=== PATIENT | male | born 2005 | race African-American/Black ===

== ENCOUNTER 2025-09-19 12:49 | Observation (INO) ==
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
[2025-09-19 15:09] LABS: Alanine Aminotransferase 30.0 U/L (7-52); Albumin Globulin Ratio 1.1 (0.9-2); Albumin Level 4.2 gm/dl (3.4-5.0); Alkaline Phosphatase 83.0 U/L (34-104); Anion Gap 7.0 (3-11); Bilirubin,Total 1.2 mg/dl (0.2-1.0); Blood Urea Nitrogen 12.0 mg/dl (6-23); Calcium 9.9 mg/dl (8.6-10.3); Carbon Dioxide 28.0 mmol/L (21-32); Chloride 104.0 mmol/L (98-107); Creatinine Clr Calc Pharmacy 142.6 ml/min; Globulin 3.7 gm/dl (2.5-4.0); Glucose 83.0 mg/dl (70-99(Fasting)); Magnesium 1.8 mg/dl (1.7-2.4); Potassium 4.1 mmol/L (3.5-5.1); Sodium 139.0 mmol/L (136-145); Total Protein 7.9 gm/dl (6.0-8.3)
[2025-09-19] MEDS: ONDANSETRON 4 MG OD TAB PO STA (15:53)
--- NOTE | 2025-09-19 15:58 | XRay Report ---
EXAM: Radiograph of the Chest 1 View INDICATION: Chest pain TECHNIQUE: Frontal view of the chest. COMPARISON: 09/08/2025 FINDINGS: Lungs and pleural spaces: No consolidation or pulmonary edema. No pleural effusion or pneumothorax. Heart: Shape and configuration within normal limits allowing for technique. Mediastinum: Normal contour. Bones/joints: No fracture, erosion or dislocation. Soft tissues: No abnormality noted. No radiopaque foreign body noted. Upper abdomen: No abnormality noted. IMPRESSION: No abnormality noted. ACT 112: N/A Electronically signed by Rocio Wilson 09-19-2025 3:58 PM
--- NOTE | 2025-09-19 18:16 | CT Scan Report ---
CT cervical spine without IV contrast History: Trauma Comparison: None Technique: Using multidetector thin collimation helical acquisition technique, axial, coronal and sagittal CT images through the cervical spine were obtained without intravenous contrast. Dose reduction techniques were achieved by using automatic exposure control and/or adjustment of mA and/or kV according to patient size and/or use of iterative reconstruction technique. Findings: The cervical vertebrae are normally aligned. Straightened cervical lordosis. No acute fracture or subluxation. No prevertebral edema. There is no disc height narrowing at any level. The findings on a level by level basis are as follows: C2-3: No spinal canal or neural foraminal stenosis C3-4: No spinal canal or neural foraminal stenosis C4-5: No spinal canal or neural foraminal stenosis C5-6: No spinal canal or neural foraminal stenosis C6-7: No spinal canal or neural foraminal stenosis C7-1: No spinal canal or neural foraminal stenosis No abnormality of the paraspinous soft tissues. Impression: No acute fracture or traumatic subluxation. Electronically signed by Nilton Segura 09-19-2025 6:16 PM
[2025-09-19 18:59] LABS: Hematocrit (blood only) 42.8 % (42.0-52.0); Hemoglobin 14.8 g/dl (14.0-18.0); Immature Granulocytes # (auto) 0.02 K/uL (0.01-0.20); Immature Granulocytes % (auto) 0.2 %; Mean Corpuscular Hemoglobin 27.0 pg (25.0-34.0); Mean Corpuscular Volume 78.0 fL (80.0-100.0); Platelet Count 154 K/uL (130-400); RDW Standard Deviation 36.3 fL (36.4-46.3); Red Blood Count 5.49 M/uL (4.70-6.10); White Blood Count 9.27 K/ul (4.8-10.8)
[2025-09-19] MEDS: OPTIRAY 320 125ml IV ONE (19:14)
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
--- NOTE | 2025-09-19 19:29 | CT Scan Report ---
INDICATION: Chest pain COMPARISON: None TECHNIQUE: CT images of the chest were obtained. 3D CT angiogram was generated from the axial data set. Dose reduction according to patient size and/or automated exposure control techniques have been utilized for this exam. MIP (Maximum Intensity Pixel) images were utilized. FINDINGS: AXIAL IMAGES: LUNGS: No focal consolidations. No worrisome pulmonary nodules. PLEURA: There is no pleural effusion. MEDIASTINUM/LA: No significant lymphadenopathy. CARDIAC: The heart is normal in size. AORTA: No aneurysm. LIMITED ABDOMEN: Normal size adrenal glands. BONES: Bony thorax is intact. OTHER: Unremarkable. CTA: No large or central pulmonary emboli.There is some motion artifact at the lung bases. Distal lower lobe pulmonary arterial branches are not well-evaluated, especially in the left lower lobe region. IMPRESSION: No large or central pulmonary emboli. No focal consolidations. Electronically signed by Carlotta Liz 09-19-2025 7:29 PM
[2025-09-19 20:41] LABS: INR 1.0 (0.9-1.1); Partial Thromboplastin Time 25 Seconds (21-31); Prothrombin Time 10.9 Seconds (9.0-12.0)
[2025-09-19] MEDS: ACETAMINOPHEN 1,000 MG/100 ML VIAL IV STA (21:19)
[2025-09-19] MEDS: SODIUM CHLORIDE 0.9% 1,000 ML IV ONE (21:28)
[2025-09-19] MEDS: SODIUM CHLORIDE 0.9% 1,000 ML IV SCH (22:37)
[2025-09-19 22:56] LABS: Chlamydia pneumoniae PCR Not Detected (NotDetected); Coronavirus 229E PCR Not Detected (NotDetected); Coronavirus CoV-2 (COVID19)PCR Not Detected (NotDetected); Coronavirus HKU1 PCR Not Detected (NotDetected); Coronavirus NL63 PCR Not Detected (NotDetected); Coronavirus OC43PCR Not Detected (NotDetected); Human Metapneumovirus PCR Not Detected (NotDetected); Parainfluenza Virus 1 PCR Not Detected (NotDetected); Parainfluenza Virus 2 PCR Not Detected (NotDetected); Parainfluenza Virus 3 PCR Not Detected (NotDetected); Parainfluenza Virus 4 PCR Not Detected (NotDetected); Respiratory Syncytial VirusPCR Not Detected (NotDetected); Rhinovirus/Enterovirus PCR Not Detected (NotDetected)
[2025-09-19] MEDS: PIPERACILLIN/TAZOBACTAM 4.5 GM/100 ML BAG IV ONE (23:00)
[2025-09-19 23:14] LABS: Appearance Urine Clear (Clear); Glucose Urine UA Negative (Negative)
[2025-09-19] MEDS: DOXYCYCLINE HYCLATE 100 MG in DEXTROSE 5% MINI-B 100 ML IV SCH (23:43)
[2025-09-20] MEDS: ONDANSETRON INJ 2 MG/ML 2 ML VIAL IV PRN (02:07)
[2025-09-20] MEDS: PIPERACILLIN/TAZOBACTAM 4.5 GM/100 ML BAG IV SCH (04:06)
[2025-09-20] MEDS: ACETAMINOPHEN 325 MG TAB PO PRN (04:13)
[2025-09-20] MEDS: SODIUM CHLORIDE 0.65% NA SOLN 45 ML (OCEAN) PRN (05:02)
[2025-09-20] MEDS: KETOROLAC TROMETHAMINE 15 MG/ML VIAL IV ONE (05:02)
[2025-09-20] MEDS: SODIUM CHLORIDE 0.65% NA SOLN 45 ML (OCEAN) ONE (06:35)
--- NOTE | 2025-09-20 07:41 | Hospitalist Progress Note ---
Date of Service September 20, 2025 Assessment & Plan (1) Chest pain: (2) Syncope: Plan Mr Conrad is a20 y/o male who is detained at [facility] with no clear medical history admitted for evaluation of chest pain and abnormal ekg. Given fever and pleuritic nature of pain as well as elevated troponin and ST elevations, will treat as a myopericarditis until further recommendations from cardiology. #Elevated troponin suspect 2/2 myopericarditis #Atypical chest pain #Fever - CT chest PE protocol negative for PE EKG personally reviewed with ST changes TMAX 39.4, biofire negative TSH wnl blood cultures pending Continue empiric coverage for now ESR wnl, CRP mildly elevated ECHO ordered Scheduled Ibuprofen 600mg TID Start PPI Colchicine 1.2 mg now followed by 0.6mg bid continue to monitor on tele Cardiology following, appreciate further recommendations #Concentric LVH Cardiology recommends OP cardiac MRI to assess for LVOH #Microcytic anemia #MADELIN ferritin 70.1, Iron 18 adminster IV venofer DVT ppx enoxaparin Admission and Anticipated Discharge Date Admission Date: September 19, 2025 Subjective Reports feeling somewhat improved after IV ketorolac this am States pain is settled. Not very engaged in conversation Physical Exam Constitutional: WD/WN, vitals as above Respiratory: normal respiratory effort, lungs clear to auscultation Cardiovascular: RRR, no murmur, no edema Gastrointestinal (Abdomen): normal bowel sounds, soft, nontender, no hepatosplenomegaly Results & Data Results & Data Vital Signs (Past 12 Hours) Vital Signs Temp Pulse Pulse Resp BP Pulse Ox O2 Del Method 09/20/25 04:00 38.0 C H 96 H 19 104/52 L 95 Room Air 09/20/25 01:53 100 H 09/20/25 00:27 38.3 C H 100 H 18 106/65 95 Room Air 09/19/25 20:45 39.4 C H 108 H 20 97/47 L 95 Room Air Laboratory Results Short CBC 09/19/25 09/19/25 Range/Units 14:38 18:36 WBC Cancelled 9.27 Hgb Cancelled 14.8 Hct Cancelled 42.8 Plt Count Cancelled 154 BMP 09/19/25 14:38 Sodium 139 Potassium 4.1 Chloride 104 Carbon Dioxide 28 BUN 12 Creatinine 1.07 Glucose 83 Calcium 9.9 Liver Function 09/19/25 Range/Units 14:38 Total Bilirubin 1.2 H (0.2-1.0) mg/dl AST 28 (13-39) U/L ALT 30 (7-52) U/L Alkaline Phosphatase 83 (34-104) U/L Albumin 4.2 (3.4-5.0) gm/dl Urine 09/19/25 Range/Units Unknown Urine Color Yellow Urine Appearance Clear (Clear) Urine pH 5.5 (4.5-7.5) Ur Specific [place] 1.044 H (1.000-1.030) Urine Protein Negative (Negative) Urine Glucose (UA) Negative (Negative) Medications Administered Home Medications Medication Instructions Recorded Confirmed Last Taken No Known Home Medications 09/07/25 09/19/25 Unknown Active Medications Generic Name Dose Route Start Last Admin Trade Name Freq PRN Reason Stop Dose Admin Acetaminophen 650 mg 09/19/25 20:50 09/20/25 04:13 Acetaminophen 325 Mg Tab PO 10/19/25 20:49 650 mg Q4H PRN Administration Pain or Fever Sodium Chloride 1,000 mls @ 80 mls/hr 09/19/25 21:15 09/19/25 22:37 Nss IV 09/22/25 21:14 80 mls/hr .[id number] HECTOR Administration Piperacillin Sod/Tazobactam Sod 4.5 gm in 100 mls @ 25 mls/hr 09/20/25 04:00 09/20/25 04:06 Zosyn IV 09/22/25 03:59 25 mls/hr Q8H HECTOR Administration Protocol Doxycycline Hyclate 100 mg/ 100 mls @ 50 mls/hr 09/19/25 21:15 09/20/25 02:59 Dextrose IV 09/21/25 21:14 Infused Q12H HECTOR Infusion Ondansetron HCl 4 mg 09/19/25 20:50 09/20/25 02:07 Ondansetron Inj 2 Mg/Ml 2 Ml Vial IV 10/19/25 20:49 4 mg Q6H PRN Administration Nausea Sodium Chloride 1 sprays 09/20/25 04:18 09/20/25 05:02 Sodium Chloride 0.65% Na Soln 45 Ml ([place]) NA 10/20/25 04:29 1 sprays Q6H PRN Administration Nasal Congestion
[2025-09-20 08:13] LABS: Hematocrit (blood only) 38.9 % (42.0-52.0); Hemoglobin 12.6 g/dl (14.0-18.0); Immature Granulocytes # (auto) 0.05 K/uL (0.01-0.20); Immature Granulocytes % (auto) 0.6 %; Mean Corpuscular Hemoglobin 25.8 pg (25.0-34.0); Mean Corpuscular Volume 79.7 fL (80.0-100.0); Platelet Count 103 K/uL (130-400); RDW Standard Deviation 37.7 fL (36.4-46.3); Red Blood Count 4.88 M/uL (4.70-6.10); White Blood Count 8.92 K/ul (4.8-10.8)
[2025-09-20 08:34] LABS: Alanine Aminotransferase 26.0 U/L (7-52); Albumin Level 3.5 gm/dl (3.4-5.0); Alkaline Phosphatase 67.0 U/L (34-104); Anion Gap 8.0 (3-11); Bilirubin,Total 1.1 mg/dl (0.2-1.0); Blood Urea Nitrogen 14.0 mg/dl (6-23); Calcium 8.7 mg/dl (8.6-10.3); Carbon Dioxide 25.0 mmol/L (21-32); Chloride 106.0 mmol/L (98-107); Cholesterol 109.0 mg/dl (0-200); Creatinine Clr Calc Pharmacy 136.1 ml/min; Glucose 90.0 mg/dl (70-99(Fasting)); HDL Cholesterol 36.0 mg/dl; Potassium 3.6 mmol/L (3.5-5.1); Sodium 139.0 mmol/L (136-145); Total Protein 6.7 gm/dl (6.0-8.3); Triglycerides 51.0 mg/dl (0-150)
[2025-09-20 08:45] LABS: Thyroid Stimulating Hormone 0.399 uIu/ml (0.300-4.500)
[2025-09-20] MEDS ORDERED: SODIUM CHLORIDE 0.65% NA SOLN 45 ML (OCEAN) SCH (09:00)
[2025-09-20] MEDS: COLCHICINE 0.6 MG TAB PO ONE (09:02)
[2025-09-20] MEDS: ENOXAPARIN INJ 40 MG/0.4 ML SYR SQ SCH (09:03)
[2025-09-20] MEDS ORDERED: IBUPROFEN 600 MG TAB PO SCH (10:00)
[2025-09-20 10:21] LABS: Creatine Kinase 538.0 U/L (30-223)
[2025-09-20 11:05] LABS: Iron 18.0 mcg/dl (35-175); Total Iron Binding Cap Calc 330.0 mcg/dl (250-450); Transferrin 236.0 mg/dl (200-360); Transferrin (FE) Percent Satur 5.0 % (20-50)
[2025-09-20 11:24] LABS: Ferritin 70.1 ng/ml (8-388)
--- NOTE | 2025-09-20 11:49 | XCELERA ---
[id number]
--- NOTE | 2025-09-20 13:38 | Electrocardiogram Report ---
Test Reason : Blood Pressure : */* mmHG Vent. Rate : 92 BPM Atrial Rate : 92 BPM P-R Int : 164 ms QRS Dur : 92 ms QT Int : 350 ms P-R-T Axes : 59 65 -14 degrees QTcB Int : 432 ms Normal sinus rhythm T wave abnormality, consider inferolateral ischemia vs LVH Abnormal ECG When compared with ECG of 08-Sep-2025 15:32, No significant change was found Confirmed by Nilton Barahona ([id number]) on 09/20/2025 1:38:41 PM Referred By: [facility] Confirmed By: Nilton Barahona
--- NOTE | 2025-09-20 13:39 | Electrocardiogram Report ---
Test Reason : Blood Pressure : */* mmHG Vent. Rate : 94 BPM Atrial Rate : 94 BPM P-R Int : 128 ms QRS Dur : 100 ms QT Int : 366 ms P-R-T Axes : 56 69 -43 degrees QTcB Int : 457 ms Normal sinus rhythm Left ventricular hypertrophy with repolarization abnormality Abnormal ECG When compared with ECG of 19-Sep-2025 12:58, (unconfirmed) ST more elevated in Anterior leads Confirmed by Nilton Barahona ([id number]) on 09/20/2025 1:39:43 PM Referred By: [facility] Confirmed By: Nilton Barahona
--- NOTE | 2025-09-20 13:41 | Cardiology Consultation ---
Date of Consultation September 20, 2025 Assessment & Plan (1) EKG abnormalities: (2) Elevated troponin: (3) Chest pain: Plan Patient is a 20 year old incarcerated male without any known medical problems admitted to [facility] with chest pain, SOB, and questionable syncope. Febrile ove rnight. He has been found to have abnormal EKG over the last [address]/T wave abnormalities, possible LVH with repolarization abnormalities. Minimally elevated troponin. Not suggestive of angina or ACS Elevated CK and CRP. Lyme negative Normal LVEF with moderate LVH (no history of HTN). Family history of SCD with brother age 25. Details uncertain. Await blood cultures, tox screen. Continue broad spectrum antibiotics for now. HR and BP controlled Consider colchicine for possible pericarditis. Given moderate LVH, findings consistent with possible HCM? Recommend cardiac MRI and cardiac CT as outpatient Continue on telemetry Outpatient ZIO monitor recommended. Further recommendations pending evaluation with Dr. Lane Case discussed with Dr. Lane I spent a total of 60 minutes on the date of service in preparation, delivery, and documentation of the care provided to this patient, excluding any time spent in the performance of separately billed services. Misty Jaimes PA-C Department of Cardiology, [facility] This chart was completed in part utilizing Speech Voice Recognition Software. Grammatical errors, random word insertions, pronoun errors, and incomplete sentences are an occasional consequence of this system due to software limitations, ambient noise, and hardware issues. Any formal questions or concerns about the content, text, or information contained within the body of this dictation should be directly addressed to the provider for clarification. Supervising Physician Co-Signing Physician Notes I have personally performed a history and physical examination on the patient. I have reviewed the advance practitioner's documentation, and I agree with, and take responsibility for the plan of care. 20-year-old male presenting to the emergency department with sharp, intermittent chest discomfort atypical for angina. Initially reported syncopal episode, moe bruce, I discussed the case with medical staff at patient's facility who denied any loss of consciousness. Reports patient was combative and hyperventilating when he dropped to the ground however, did not lose consciousness. Possible family history of sudden cardiac involving his 25-year-old brother, however, details are unknown at this time. High-sensitivity troponin minimally elevated and flat in setting of elevated CK. Febrile overnight suggesting inflammatory, possible infectious process although no obvious source of infection present on evaluation. Cultures pending at this time. Echocardiogram reveals moderate concentric left ventricular hypertrophy without pericardial effusion. Symptoms improved with addition of NSAIDs/colchicine suggesting possible pericarditis/myopericarditis. Continue empiric antibiotic therapy, pending review of blood cultures. Continue NSAIDs at this time for symptomatic relief. Restart colchicine tomorrow pending review of CBC and platelet count. Further evaluation with 14-day ZIO monitor, cardiac MRI, and cardiac CT as outpatient. I spent a total of 45 minutes on the date of service in preparation, delivery, and documentation of the care provided to this patient, excluding any time spent in the performance of separately billed services. Gonsalo Lane DO, [facility] History of Present Illness Reason for Consultation: Abnormal EKG; Syncope Requesting Physician: Roc Dejesus Attending Physician: Dr. Lane History of Present Illness Patient is a 20 year old male who presented to [facility] yesterday after a syncopal event at his long-term facility. Syncope occurred while he was agitated and being evaluated at the [facility] medical wing. Recent history includes chest pain and dyspnea over the last few months. Described as sharp stabbing chest pain over his heart. Occurs with deep inspiration or activity. Also noted progressive SOB with activities. He was evaluated in the ER approx 2 weeks ago for similar symptoms. In the ER, he was found to have abnormal EKG demonstrating NSR with diffuse ST/T wave abnormality in anterolateral leads. Minimally elevated troponin noted in the 30's. Elevated CK and CRP also noted. IT was recommended he stay and be admitted and echo was ordered but patient refused care and wanted to leave AMA. Over the last 2 weeks he reports worsening sharp chest pain and dyspnea. He went to the [facility] yesterday due to symptoms and it was there he had a witnessed syncopal event. Apparently he was unconscious for 1-2 minutes. Patient does not recall events. He was then transferred for evaluation to [facility]. Once again on arrival, he was found to have abnormal EKG with diffuse ST/T wave abnormalities in anterolateral and inferior leads. Mild ST elevation noted. Minimally elevated troponin again noted in the 20's. Elevated CK and CRP again noted. Concers for pericarditis vs myocarditis on admisison. Treated with dose of colchicine and ibuprofen. Overnight he was febrile for several hours. Blood cultures pending. Antibiotics added. Respiratory panel was negative. Lyme negative. Tox screen pending Patient was agreeable to echo which demonstrated normal LVEF with moderate LVH and no significant valvular disease. At time of consult, patient resting in bed comfortably. Reports his "sharp" pain has improved. No additional fevers. SOB is better at rest. No orthopnea, PND or edema. Allergies Allergy/AdvReac Type Severity Reaction Status Date / Time No Known Allergies Allergy Verified 09/07/25 22:56 Home Medications Medication Instructions Recorded Confirmed Type No Known Home Medications 09/07/25 09/19/25 History Patient History Social History Smoking Status: Never smoker Hx Alcohol Use: No Hx Substance Use: No Preferred Language: Amharic Communication Ability: Effective Soil Chemist Required: No Beliefs That Will Affect Care: Cultural Cultural Beliefs: "Israelite"- refuses treatment with modern medicine Current Living Situation: Other Current Living Situation Comment: [facility] Feels Safe at Home: No Review of Systems Review of Systems: All systems reviewed & are unremarkable except as noted in HPI & below Physical Exam Constitutional: WD/WN, vitals as above no acute distress Neck: trachea midline, no thyromegaly Respiratory: normal respiratory effort, lungs clear to auscultation Cardiovascular: Rate/Rhythm: regular rate and regular rhythm Heart Sounds: normal S1 and normal S2; no murmur Vessels: no JVD Extremities: no edema Gastrointestinal (Abdomen): normal bowel sounds, soft, nontender, no hepatosplenomegaly Neurologic: PERRL, EOMI, accommodation nl, no face palsy, no dysarthria Results & Data Vital Signs (Past 12 Hours) Vital Signs Temp Pulse Pulse Resp BP Pulse Ox O2 Del Method 09/20/25 11:41 36.3 C L 68 18 120/76 98 Room Air 09/20/25 07:42 36.6 C 78 18 115/69 98 Room Air 09/20/25 04:00 38.0 C H 96 H 19 104/52 L 95 Room Air 09/20/25 01:53 100 H Laboratory Results Cardiac Enzymes 09/19/25 09/19/25 09/19/25 Range/Units 14:38 16:50 22:43 AST 28 (13-39) U/L Troponin I High Sens 24.2 H 29.1 H 28.8 H (0-20) pg/ml 09/20/25 Range/Units 07:36 AST 22 (13-39) U/L Troponin I High Sens 16.6 D (0-20) pg/ml Coagulation 09/19/25 Range/Units 18:45 PT 10.9 (9.0-12.0) Seconds APTT 25 (21-31) Seconds Lipids 09/20/25 Range/Units 07:36 Triglycerides 51 (0-150) mg/dl Cholesterol 109 (0-200) mg/dl HDL Cholesterol 36 mg/dl Cholesterol/HDL Ratio 3.0 (0-5) CBC 09/19/25 09/19/25 09/20/25 Range/Units 14:38 18:36 07:36 WBC Cancelled 9.27 8.92 RBC Cancelled 5.49 4.88 Hgb Cancelled 14.8 12.6 L Hct Cancelled 42.8 38.9 L Plt Count Cancelled 154 103 L Neut # (Auto) Cancelled 7.97 H 6.35 Lymph # (Auto) Cancelled 0.57 L 1.40 Holmes # (Auto) Cancelled 0.68 H 1.08 H Eos # (Auto) Cancelled 0.00 0.02 Baso # (Auto) Cancelled 0.03 0.02 Comprehensive Metabolic Panel 09/19/25 09/20/25 Range/Units 14:38 07:36 Sodium 139 139 (136-145) mmol/L Potassium 4.1 3.6 (3.5-5.1) mmol/L Chloride 104 106 (98-107) mmol/L Carbon Dioxide 28 25 (21-32) mmol/L BUN 12 14 (6-23) mg/dl Creatinine 1.07 1.16 (0.6-1.4) mg/dl Glucose 83 90 (70-99(Fasting)) mg/dl Calcium 9.9 8.7 (8.6-10.3) mg/dl Direct Bilirubin 0.2 (0-0.2) mg/dl AST 28 22 (13-39) U/L ALT 30 26 (7-52) U/L Alkaline Phosphatase 83 67 (34-104) U/L Total Protein 7.9 6.7 (6.0-8.3) gm/dl Albumin 4.2 3.5 (3.4-5.0) gm/dl Intake and Output 09/19/25 09/20/25 09/20/25 22:59 06:59 14:59 Intake Total 1600 / 1800 200 / 1800 200 / 200 Output Total 501 / 501 Balance 1600 / 1800 200 / 1800 -301 / -301 Intake: IV 1100 / 1300 200 / 1300 200 / 200 Acetaminophen 1,000 mg In 100 100 / 100 ml @ 400 mls/hr IV NOW STA Rx#: [id number] Doxycycline Hyclate 100 mg In 100 / 100 100 / 100 Dextrose 5% Mini-B 100 ml @ 50 mls/hr IV Q12H HECTOR Rx#:[id number] Piperacillin/Tazobactam 4.5 gm 100 / 100 100 / 100 In 100 ml @ 25 mls/hr IV Q8H HECTOR Rx#:[id number] Sodium Chloride 0.9% 1,000 ml @ 1000 / 1000 999 mls/hr IV .Q1H1M ONE Rx#: [id number] Oral 500 / 500 Output: Urine 500 / 500 # Bowel Movements / Other: # Unmeasured Voids 1 1 Weight 114 kg 114 kg Weight Measurement Method Built in [facility] Diagnostic Findings Telemetry reviewed: NSR 70's EKG's reviewed from this admission and last admission: NSR with diffuse ST/T wave abnormality with repolarization abnormality Echo reviewed: LVEF 60-65% Moderate concentric LVH LV wall motion is normal No significant valvular disease Chest X-Ray 09/19/25 14:25 EXAM: Radiograph of the Chest 1 View INDICATION: Chest pain TECHNIQUE: Frontal view of the chest. COMPARISON: 09/08/2025 FINDINGS: Lungs and pleural spaces: No consolidation or pulmonary edema. No pleural effusion or pneumothorax. Heart: Shape and configuration within normal limits allowing for technique. Mediastinum: Normal contour. Bones/joints: No fracture, erosion or dislocation. Soft tissues: No abnormality noted. No radiopaque foreign body noted. Upper abdomen: No abnormality noted. IMPRESSION: No abnormality noted. ACT 112: N/A Electronically signed by Rocio Wilson 09-19-2025 3:[address] 09/19/25 16:03 CT cervical spine without IV contrast History: Trauma Comparison: None Technique: Using multidetector thin collimation helical acquisition technique, axial, coronal and sagittal CT images through the cervical spine were obtained without intravenous contrast. Dose reduction techniques were achieved by using automatic exposure control and/or adjustment of mA and/or kV according to patient size and/or use of iterative reconstruction technique. Findings: The cervical vertebrae are normally aligned. Straightened cervical lordosis. No acute fracture or subluxation. No prevertebral edema. There is no disc height narrowing at any level. The findings on a level by level basis are as follows: C2-3: No spinal canal or neural foraminal stenosis C3-4: No spinal canal or neural foraminal stenosis C4-5: No spinal canal or neural foraminal stenosis C5-6: No spinal canal or neural foraminal stenosis C6-7: No spinal canal or neural foraminal stenosis C7-1: No spinal canal or neural foraminal stenosis No abnormality of the paraspinous soft tissues. Impression: No acute fracture or traumatic subluxation. Electronically signed by Nilton Segura 09-19-2025 6:16 PM Chest CTA 09/19/25 18:43 INDICATION: Chest pain COMPARISON: None TECHNIQUE: CT images of the chest were obtained. 3D CT angiogram was generated from the axial data set. Dose reduction according to patient size and/or automated exposure control techniques have been utilized for this exam. MIP (Maximum Intensity Pixel) images were utilized. FINDINGS: AXIAL IMAGES: LUNGS: No focal consolidations. No worrisome pulmonary nodules. PLEURA: There is no pleural effusion. MEDIASTINUM/LA: No significant lymphadenopathy. CARDIAC: The heart is normal in size. AORTA: No aneurysm. LIMITED ABDOMEN: Normal size adrenal glands. BONES: Bony thorax is intact. OTHER: Unremarkable. CTA: No large or central pulmonary emboli.There is some motion artifact at the lung bases. Distal lower lobe pulmonary arterial branches are not well-evaluated, especially in the left lower lobe region. IMPRESSION: No large or central pulmonary emboli. No focal consolidations. Electronically signed by Carlotta Liz 09-19-2025 7:29 PM Medications Administered Current Inpatient Medications Acetaminophen (Acetaminophen 325 Mg Tab) 650 mg PO Q4H PRN PRN Reason: Pain or Fever Stop: 10/19/25 20:49 Last Admin: 09/20/25 04:13 Dose: 650 mg Enoxaparin Sodium (Enoxaparin Inj 40 Mg/0.4 Ml Syr) 40 mg SQ QAM [facility] Stop: 10/20/25 08:59 Last Admin: 09/20/25 09:03 Dose: 40 mg Sodium Chloride (Nss) 1,000 mls @ 80 mls/hr IV .[id number] [facility] Stop: 09/22/25 21:14 Last Admin: 09/19/25 22:37 Dose: 80 mls/hr Piperacillin Sod/Tazobactam Sod (Zosyn) 4.5 gm in 100 mls @ 25 mls/hr IV Q8H [facility]; Protocol Stop: 09/22/25 03:59 Last Admin: 09/20/25 12:11 Dose: 25 mls/hr Doxycycline Hyclate 100 mg/ (Dextrose) 100 mls @ 50 mls/hr IV Q12H [facility] Stop: 09/21/25 21:14 Last Infusion: 09/20/25 11:39 Dose: Infused Ondansetron HCl (Ondansetron Inj 2 Mg/Ml 2 Ml Vial) 4 mg IV Q6H PRN PRN Reason: Nausea Stop: 10/19/25 20:49 Last Admin: 09/20/25 02:07 Dose: 4 mg Pantoprazole Sodium (Pantoprazole 40 Mg Tab) 40 mg PO QAM [facility] Stop: 10/20/25 08:59 Last Admin: 09/20/25 09:03 Dose: 40 mg Sodium Chloride (Sodium Chloride 0.65% Na Soln 45 Ml (Josephine)) 1 sprays NA Q6H PRN PRN Reason: Nasal Congestion Stop: 10/20/25 04:29 Last Admin: 09/20/25 05:02 Dose: 1 sprays PG Care Time/CCT Total # of Minutes Spent Total Time Spent with Patient: Total time spent is greater than 50% in coordination of care (as documented) at patient's floor/unit and/or counseling patient: 60 minutes Coding Level of Care Code 82279 IN/OBS CONSULT LVL 5,80M Diagnoses EKG abnormalities R94.31 Elevated troponin R79.89 Chest pain, unspecified type R07.9
--- NOTE | 2025-09-20 13:54 | Electrocardiogram Report ---
Test Reason : Blood Pressure : */* mmHG Vent. Rate : 78 BPM Atrial Rate : 78 BPM P-R Int : 178 ms QRS Dur : 104 ms QT Int : 404 ms P-R-T Axes : 59 65 -38 degrees QTcB Int : 460 ms Normal sinus rhythm T wave abnormality, consider inferolateral ischemia vs LVH Abnormal ECG When compared with ECG of 19-Sep-2025 14:08, (unconfirmed) T wave inversion more evident in Anterior leads Confirmed by Nilton Barahona ([id number]) on 09/20/2025 1:54:26 PM Referred By: [facility] Confirmed By: Nilton Barahona
[2025-09-20] MEDS: IRON SUCROSE 300 MG in SODIUM CHLORIDE 0.9% 250 ML IV ONE (16:20)
[2025-09-20] MEDS: SODIUM CHLORIDE 0.9% 1,000 ML IV SCH (16:21)
[2025-09-20] MEDS: IBUPROFEN 600 MG TAB PO SCH (16:21)
[2025-09-20 17:36] LABS: Amphetamines+Metham, Urine Neg (Neg); MDMA (Ecstacy), Urine Neg (Neg); Marijuana, Urine Neg (Neg)
[2025-09-20] MEDS ORDERED: COLCHICINE 0.6 MG TAB PO SCH (21:00)
[2025-09-20] MEDS: COLCHICINE 0.6 MG TAB PO SCH (21:48)
[2025-09-21] MEDS: LOPERAMIDE HCL 2 MG CAP PO STA (00:44)
[2025-09-21 07:24] LABS: Hematocrit (blood only) 39.3 % (42.0-52.0); Hemoglobin 12.9 g/dl (14.0-18.0); Mean Corpuscular Hemoglobin 25.9 pg (25.0-34.0); Mean Corpuscular Volume 78.9 fL (80.0-100.0); Platelet Count 109 K/uL (130-400); RDW Standard Deviation 37.3 fL (36.4-46.3); Red Blood Count 4.98 M/uL (4.70-6.10); White Blood Count 6.11 K/ul (4.8-10.8)
[2025-09-21 07:40] LABS: Anion Gap 5.0 (3-11); Blood Urea Nitrogen 8.0 mg/dl (6-23); Calcium 8.8 mg/dl (8.6-10.3); Carbon Dioxide 25.0 mmol/L (21-32); Chloride 111.0 mmol/L (98-107); Creatinine Clr Calc Pharmacy 125.9 ml/min; Glucose 92.0 mg/dl (70-99(Fasting)); Magnesium 1.9 mg/dl (1.7-2.4); Potassium 4.2 mmol/L (3.5-5.1); Sodium 141.0 mmol/L (136-145)
[2025-09-21 08:01] LABS: Creatine Kinase 379.0 U/L (30-223)
[2025-09-21] MEDS: LACTATED RINGER'S 1,000 ML IV SCH (10:11)
[2025-09-21 11:46] VITALS: BP 126/80; RESP 18; TEMP 97.9; O2SAT 99
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
[2025-09-21 14:19] VITALS: PULSE 77
--- NOTE | 2025-09-21 14:37 | Cardiology Progress Note ---
Date of Service September 21, 2025 Assessment & Plan (1) EKG abnormalities: (2) Elevated troponin: (3) Chest pain: Plan Patient is a 20 year old incarcerated male without any known medical problems admitted to [facility] with chest pain, SOB, and questionable syncope. Febrile overnight. He has been found to have abnormal EKG over the last [address]/T wave abnormalities, possible LVH with repolarization abnormalities. Minimally elevated troponin. Not suggestive of angina or ACS Elevated CK and CRP. Lyme negative Normal LVEF with moderate LVH (no history of HTN). Family history of SCD with brother age 25. Details uncertain. Blood cultures are negative (prelim) and tox screen unremarkable. symptoms and presentation with elevated CK and CRP suggestive of possible pericarditis vs myopericarditis. Continue Ibuprofen 600 TID x 1 week, then wean to 400 mg TID, 200 mg TID as tolerated Start colchicine 0.6 mg daily Outpatient cardiac MRI to be arranged for further evaluation of possible myocarditis and/or hypertrophic cardiomypathy. Outpatient cardiac CT to also be arranged given abnormal EKG. Outpatient ZIO monitor recommended. [facility]ician at [facility] facility aware of recommendations and will assist in scheduling. Due to [facility] facility, he may not be able to have this done at [facility] and may need to go to [place]. Sandi is agreeable to proceeding. Stable for discharge today. Case discussed with Dr. Borrero I spent a total of 30 minutes on the date of service in preparation, delivery, and documentation of the care provided to this patient, excluding any time spent in the performance of separately billed services. Misty Jaimes PA-C Department of Cardiology, [facility] This chart was completed in part utilizing Speech Voice Recognition Software. Grammatical errors, random word insertions, pronoun errors, and incomplete se ntences are an occasional consequence of this system due to software limitations, ambient noise, and hardware issues. Any formal questions or concerns about the content, text, or information contained within the body of this dictation should be directly addressed to the provider for clarification. Admission and Anticipated Discharge Date Admission Date: September 19, 2025 Supervising Physician Co-Signing Physician Notes Attending attestation: Case reviewed with the advanced practitioner. I have personally performed a history and physical examination on the patient. I have reviewed the advanced practitioner's documentation on the date of service referenced in note, and I agree with, and take responsibility for the plan of care. During my assessment, patient stated chest discomfort symptoms had resolved with addition of ibuprofen and colchicine. Plan for 3-month course of colchicine. Plan for ibuprofen 600 mg every 8 hours for 7 days with Protonix for GI prophylaxis while on ibuprofen. Patient to avoid vigorous exercise for 6 months, with future recommendations to be forthcoming after cardiac MRI and 14-day ambulatory cardiac sonographer. Abnormal EKG likely consistent with left ventricular hypertrophy. Echocardiogram however was not suggestive of hypertrophic cardiomyopathy. In addition to evaluation for myopericarditis, cardiac MRI would be helpful with regards to evaluation of left ventricular hypertrophy. I spent a total of 20 minutes coordinating, documenting, and providing care for this patient excluding time spent in the performance of separately billed services or time spent by another provider. John Borrero, DO Subjective Patient resting in bed. Feeling well. No recurrent pleuritic chest pain or SOB. Hoping to be discharged today. Review of Systems Review of Systems: All systems reviewed & are unremarkable except as noted in HPI & below Physical Exam Constitutional: WD/WN, vitals as above no acute distress Neck: trachea midline, no thyromegaly Respiratory: normal respiratory effort, lungs clear to auscultation Cardiovascular: Rate/Rhythm: regular rate and regular rhythm Heart Sounds: normal S1 and normal S2; no murmur Vessels: no JVD Extremities: no edema Gastrointestinal (Abdomen): normal bowel sounds, soft, nontender, no hepatosplenomegaly Neurologic: PERRL, EOMI, accommodation nl, no face palsy, no dysarthria Results & Data Vital Signs (Past 12 Hours) Vital Signs Temp Pulse Pulse Pulse Resp BP Pulse Ox 09/21/25 14:18 77 09/21/25 13:16 36.6 C 107 H 68 18 126/80 99 09/21/25 11:46 36.6 C 68 18 126/80 99 09/21/25 08:02 36.4 C L 59 L 20 135/81 98 09/21/25 07:00 72 09/21/25 03:29 36.7 C 70 18 142/81 H 98 O2 Del Method 09/21/25 14:18 09/21/25 13:16 09/21/25 11:46 Room Air 09/21/25 08:02 Room Air 09/21/25 07:00 09/21/25 03:29 Room Air Laboratory Results CBC 09/21/25 Range/Units 06:50 WBC 6.11 (4.8-10.8) K/ul RBC 4.98 (4.70-6.10) M/uL Hgb 12.9 L (14.0-18.0) g/dl Hct 39.3 L (42.0-52.0) % Plt Count 109 L (130-400) K/uL Comprehensive Metabolic Panel 09/21/25 Range/Units 06:50 Sodium 141 (136-145) mmol/L Potassium 4.2 (3.5-5.1) mmol/L Chloride 111 H (98-107) mmol/L Carbon Dioxide 25 (21-32) mmol/L BUN 8 (6-23) mg/dl Creatinine 1.10 (0.6-1.4) mg/dl Glucose 92 (70-99(Fasting)) mg/dl Calcium 8.8 (8.6-10.3) mg/dl Intake and Output 09/20/25 09/21/25 09/21/25 22:59 06:59 14:59 Intake Total 1365 / 3515 1450 / 3515 1200 / 1200 Balance 1365 / 3014 1450 / 3014 1200 / 1200 Intake: IV 1365 / 2765 1200 / 2765 1200 / 1200 Doxycycline Hyclate 100 mg In 100 / 200 100 / 100 Dextrose 5% Mini-B 100 ml @ 50 mls/hr IV Q12H [facility] Rx#:[id number] Iron Sucrose 300 mg In Sodium 265 / 265 Chloride 0.9% 250 ml @ 176.667 mls/hr IV TODAY ONE Rx#: [id number] Piperacillin/Tazobactam 4.5 gm 100 / 300 100 / 300 100 / 100 In 100 ml @ 25 mls/hr IV Q8H [facility] Rx#:[id number] Sodium Chloride 0.9% 1,000 ml @ 1000 / 2000 1000 / 2000 1000 / 1000 125 mls/hr IV .Q8H [facility] Rx#: [id number] Oral 250 / 750 Other: Weight 93.4 kg 93.4 kg Weight Measurement Method Built in [facility] Patient Weight 09/22/25 06:59 Weight 93.4 kg Diagnostic Findings Telemetry reviewed: NSR in the 60's Medications Administered Current Inpatient Medications Acetaminophen (Acetaminophen 325 Mg Tab) 650 mg PO Q4H PRN PRN Reason: Pain or Fever Stop: 10/19/25 20:49 Last Admin: 09/20/25 04:13 Dose: 650 mg Colchicine (Colchicine 0.6 Mg Tab) 0.6 mg PO BID [facility] Stop: 10/20/25 20:59 Last Admin: 09/21/25 08:38 Dose: 0.6 mg Enoxaparin Sodium (Enoxaparin Inj 40 Mg/0.4 Ml Syr) 40 mg SQ QAM [facility] Stop: 10/20/25 08:59 Last Admin: 09/21/25 08:39 Dose: 40 mg Piperacillin Sod/Tazobactam Sod (Zosyn) 4.5 gm in 100 mls @ 25 mls/hr IV Q8H [facility]; Protocol Stop: 09/22/25 03:59 Last Admin: 09/21/25 12:19 Dose: 25 mls/hr Doxycycline Hyclate 100 mg/ (Dextrose) 100 mls @ 50 mls/hr IV Q12H [facility] Stop: 09/21/25 21:14 Last Infusion: 09/21/25 12:27 Dose: Infused Lactated Ringer's (Lr) 1,000 mls @ 125 mls/hr IV .Q8H [facility] Stop: 09/21/25 17:44 Last Admin: 09/21/25 10:11 Dose: 125 mls/hr Ibuprofen (Ibuprofen 600 Mg Tab) 600 mg PO Q8H [facility] Stop: 10/20/25 14:59 Last Admin: 09/21/25 08:37 Dose: 600 mg Ondansetron HCl (Ondansetron Inj 2 Mg/Ml 2 Ml Vial) 4 mg IV Q6H PRN PRN Reason: Nausea Stop: 10/19/25 20:49 Last Admin: 09/20/25 02:07 Dose: 4 mg Pantoprazole Sodium (Pantoprazole 40 Mg Tab) 40 mg PO QAM [facility] Stop: 10/20/25 08:59 Last Admin: 09/21/25 08:38 Dose: 40 mg Sodium Chloride (Sodium Chloride 0.65% Na Soln 45 Ml ([place]roke)) 1 sprays NA Q6H PRN PRN Reason: Nasal Congestion Stop: 10/20/25 04:29 Last Admin: 09/20/25 05:02 Dose: 1 sprays PG Care Time/CCT Total # of Minutes Spent Total Time Spent with Patient: Total time spent is greater than 50% in coordination of care (as documented) at patient's floor/unit and/or counseling patient: 30 minutes Coding Level of Care Code 81704 SUB INP/OBS CARE 3/50MIN Diagnoses EKG abnormalities R94.31 Elevated troponin R79.89 Chest pain, unspecified type R07.9 Chest pain type: unspecified Time Spent (min) 50 Comment 30 minutes by Dion Jaimes PA-C , [address] Borrero (3) Chest pain Chest pain type: unspecified Qualified Code(s): R07.9 - Chest pain, unspecified
== END 2025-09-21 14:51 ==
LOC: ED 12:49 → 2S 12:49 → SUATTDRO 19:11 → 2S 20:45